=== PATIENT | male | born 1945 | race Caucasian/White ===

== ENCOUNTER → 2017-07-19 | Outpatient (CLI) | payer MEDICARE ==
[2017-07-19 12:03] LABS: ALT 45 U/L (21-72); AST 32 U/L (17-59); Cholesterol 210 mg/dL (<200); HDL Cholesterol 55 mg/dL (40-60)
== END | disposition home or self-care (01) ==
LOC: LABWHC1 10:53
PROVIDERS: ATTEND Internal Medicine Cardiovascular Disease
DX: E78.2 Mixed hyperlipidemia (principal)
CPT/HCPCS: 36415; 80061; 84450; 84460

== ENCOUNTER → 2018-05-18 | Outpatient (CLI) | payer MEDICARE ==
--- NOTE | 2018-05-18 14:43 | US ---
LOWER EXTREMITY VENOUS INSUFFICIENCY DATE: 05/18/2018. HISTORY: 73-year-old male diabetic foot ulcer, venous ulcer SIDE PERFORMED: Bilateral FINDINGS: 1) Color flow is present and patency is documented in the following vessels. No DVT or SVT is noted . EIV Common Femoral Vein Deep Femoral Vein Femoral Vein Popliteal Vein Proximal Calf Veins Greater Saph Vein Upper Small Saph Vein [employer] Chemist notes: Some difficulty during exam with valsalva maneuver, at certain levels valve did no t fully close; reflux is noted below. 2) There is venous reflux noted at the following venous levels: Right = FV mid and lower, Popiteal mid level, GSV at junction and mid thigh Left = GSV at junction and mid thigh IMPRESSION: 1. No evidence for DVT within the bilateral lower extremities imaged from the groin to the upper calv es. 2. Some patient limitations as above. On the right, venous reflux is noted at the mid and lower femor al vein, mid popliteal vein, and greater saphenous vein at its junction and mid thigh level. 3. On the left, venous reflux is noted in the greater saphenous vein at its junction and mid thigh le hank.
== END | disposition home or self-care (01) ==
LOC: RADUSWWP 13:14
PROVIDERS: ATTEND Podiatrist
DX: E11.621 Type 2 diabetes mellitus with foot ulcer (principal); L97.529 Non-pressure chronic ulcer of other part of left foot with unspecified severity; L97.519 Non-pressure chronic ulcer of other part of right foot with unspecified severity; I87.2 Venous insufficiency (chronic) (peripheral)
CPT/HCPCS: 93970

== ENCOUNTER → 2020-04-19 | Day surgery (SDC) | payer MEDICARE ==
[2020-04-18 08:59] VITALS: BMI 41.3
[~2020-04-19] MED LIST: BENZOCAINE SPRAY 1 CAN TOPICAL PRN; MIDAZOLAM 2 MG/2 ML VIAL IV ONE; PROPOFOL 10 MG/ML 20 ML VIAL IV ONE; SODIUM CHLORIDE 0.9% 1,000 ML IV SCH; fentaNYL (PF) 50 MCG/ML 2 ML AMP IVP ONE
[2020-04-19 08:20] LABS: Glucose,Whole Blood 136 mg/dL (75-99)
[2020-04-19 08:31] VITALS: TEMP 98.6
[2020-04-19 08:41] LABS: INR 2.2 (<1.2); Prothrombin Time 21.8 sec (9.0-12.0)
[2020-04-19 08:53] LABS: Calcium 9.1 mg/dL (8.4-10.2); Potassium 4.5 mmol/L (3.5-5.1)
[2020-04-19 09:11] LABS: Basophils # (A) 0.1 k/uL (0-0.2); Basophils % (A) 1 %; Eosinophils # (A) 0.3 k/uL (0-0.7); Eosinophils % (A) 5 %; HGB 14.6 gm/dL (13.0-17.5); Lymphocytes % (A) 18 %; MCH 29.3 pg (25.0-35.0); MCHC 33.2 g/dL (31.0-37.0); MCV 88.3 fL (80.0-100.0); Mean Platelet Volume 8.3; Monocytes # (A) 0.4 k/uL (0-1.0); Monocytes % (A) 8 %; Neutrophils # (A) 3.7 k/uL (1.3-7.7); Neutrophils % (A) 65 %; Platelet Count 242 k/uL (150-450); RBC 4.98 m/uL (4.30-5.90); RDW 14.8 % (11.5-15.5); WBC 5.6 k/uL (3.8-10.6)
[2020-04-19 09:25] VITALS: RESP 16
[2020-04-19 11:02] VITALS: BP 110/58; PULSE 50
--- NOTE | 2020-04-19 11:08 | ECHOT ---
TRANSESOPHAGEAL ECHOCARDIOGRAM INDICATION: Persistent atrial fibrillation. PROCEDURE NOTE: A transesophageal echo. INDICATION: To rule out intracardiac thrombus. Patient was sedated by the spreading machine operator. Transesophageal echocardiogram was performed in left lateral position using an Omni plane probe. The patient tolerated the procedure well without any obvious immediate complication. FINDINGS: 1. There is no intracardiac thrombus within the left atrial appendage. Left atrium, right atrium, right ventricle or left ventricle. 2. Mitral valve appears anatomically normal. There is dilatation of the mitral anulus with moderate to severe central mitral regurgitation. 3. Tricuspid valve shows mild tricuspid regurgitation. 4. Aortic valve is a 3-leaflet valve. There is no evidence of aortic stenosis or regurgitation. 5. Interatrial septum, there is no evidence of hjga-on-zjwkf shunt by color-flow Doppler or [id number] shunt by agitated saline contrast study. 6. Left atrium appears mildly enlarged. 7. Left ventricle has normal size, shows hypokinesis involving inferior wall with mild LV dysfunction with an ejection fraction of 45%. 8. Aorta shows mild atherosclerotic changes. CONCLUSION: 1. No evidence of intracardiac thrombus within the left atrial appendage, left atrium, right atrium, right ventricular or left ventricle. 2. Moderate to severe central mitral regurgitation. PLAN: Patient will undergo cardioversion. He had been on Coumadin and INR is therapeutic. CARDIOVERSION NOTE: INDICATION: Persistent atrial fibrillation. After obtaining informed consent, a transesophageal echocardiogram was performed to rule out intracardiac thrombus and the patient had been on Coumadin and INRs have been therapeutic. INR today was more than 2. The patient received a single synchronized DC current of 300 joules following which he converted to sinus rhythm. Post-conversion EKG will be performed. The patient is on amiodarone which he is going to continue along with Coumadin. We will hold the metoprolol at this time. The patient will be followed up in my office in a week's time. MMODL / IJN: [id number] /
== END ==
LOC: CATHCVL 07:54
PROVIDERS: ATTEND Internal Medicine Cardiovascular Disease
DX: I08.1 Rheumatic disorders of both mitral and tricuspid valves (principal); I70.0 Atherosclerosis of aorta; I48.19 Other persistent atrial fibrillation; I25.10 Atherosclerotic heart disease of native coronary artery without angina pectoris; I25.2 Old myocardial infarction; E11.9 Type 2 diabetes mellitus without complications; I10 Essential (primary) hypertension; E78.00 Pure hypercholesterolemia, unspecified; E78.5 Hyperlipidemia, unspecified; Z79.82 Long term (current) use of aspirin; Z79.01 Long term (current) use of anticoagulants; Z79.84 Long term (current) use of oral hypoglycemic drugs; Z79.899 Other long term (current) drug therapy; Z72.0 Tobacco use
CPT/HCPCS: 93312; 93320; 93325; 92960; 80048; 85025; 85610; J2704

== ENCOUNTER 2020-04-20 15:45 | Inpatient (IN) | payer MEDICARE ==
[2020-04-20] MEDS ORDERED: NITROGLYCERIN-D5W PMX 50 MG in DEXTROSE/WATER 1 250ML.BAG IV STA (15:57)
--- NOTE | 2020-04-20 16:45 | XR ---
EXAMINATION TYPE: XR chest 1V portable DATE OF EXAM: 04/20/2020 COMPARISON: 09/03/2013 HISTORY: Short of breath TECHNIQUE: FINDINGS: There is some pulmonary interstitial edema. Heart is enlarged. There is mild blunting of th e costophrenic angles. There are chest leads. There is some airspace infiltrate in right lower lobe. IMPRESSION: Pulmonary edema and small pleural effusions consistent with congestive heart failure that is a change compared to old exam. There is probably some right lower lobe pneumonia. Abnormalities e ssentially new compared to old exam.
--- NOTE | 2020-04-20 16:57 | ED ---
SOB HPI - General Chief Complaint: Shortness of Breath Stated Complaint: SOB Time Seen by Provider: 04/20/20 15:45 Source: EMS Mode of arrival: EMS Limitations: no limitations - History of Present Illness Initial Comments: The patient is a 75-year-old male with past medical history of A. fib, diabetes, hypertension hyperlipidemia who presents to the emergency department with reported shortness of breath. Patient had a cardioversion yesterday by Dr. Rolanda white for A. fib. States that he went home and became mildly short of breath yesterday. Shortness of breath became worse today. He reports an associated nonproductive cough. Patient denies history of COPD. Does not wear oxygen at home. Denies history of congestive heart failure. Does not take diuretics at home. Patient denies any fevers or chills. No sick contacts with similar symptoms. Has a history of DVT and is currently on Coumadin. He denies any chest pain. EMS arrived to the patient's house and found him saturating 70%. He is placed on nasal cannula and came up to 90% however he had tachypnea. Patient was then transferred to [facility]. He is given 2 albuterol treatments and on e Atrovent. He denies nausea, vomiting, abdominal pain. Patient has a chronic wound to the right lower externally which she sees wound care for. Denies any increased drainage from the site. Denies peripheral edema. There are no alleviating, Perceptin or modifying factors - Related Data Home Medications Medication Instructions Recorded Confirmed Lisinopril [Zestril] 20 mg PO DAILY 04/09/14 04/20/20 metFORMIN HCL [Glucophage] 500 mg PO BID 07/12/14 04/20/20 Cilostazol [Pletal] 100 mg PO BID 06/07/17 04/20/20 Multivitamin [Men's Multi-Vitamin] 1 tab PO DAILY 05/05/18 04/20/20 glyBURIDE [Diabeta] 5 mg PO AC-BID 06/17/18 04/20/20 Amiodarone [Cordarone] 200 mg PO BID 04/18/20 04/20/20 Warfarin [Coumadin] 5 mg PO MOTUTHFRSA 04/18/20 04/20/20 Fenofibrate [Lofibra] 160 mg PO DAILY 04/20/20 04/20/20 Warfarin [Coumadin] 2.5 mg PO SUWE 04/20/20 04/20/20 Previous Rx's Medication Instructions Recorded Aspirin 81 mg PO DAILY #30 chew 04/24/20 Atorvastatin [Lipitor] 40 mg PO DAILY #30 tab 04/24/20 Furosemide [Lasix] 20 mg PO BID #60 tab 04/24/20 Allergies Allergy/AdvReac Type Severity Reaction Status Date / Time No Known Allergies Allergy Verified 04/20/20 17:30 Review of Systems ROS Statement: Those systems with pertinent positive or pertinent negative responses have been documented in the HPI. ROS Other: All systems not noted in ROS Statement are negative. Past Medical History Past Medical History: Atrial Fibrillation, Coronary Artery Disease (CAD), Diabetes Mellitus, Deep Vein Thrombosis (DVT), Hyperlipidemia, Hypertension, Myocardial Infarction (HI), Skin Disorder, Vascular Disorder Additional Past Medical History / Comment(s): Shingles 2003. hx. elevated liver enzymes related to taking statins, right inner ankle small wound, usually wraps it, EDEMA LEGS, VARICOSE VEINS. DVT IN ARM FOLLOWING CARDIAC CATH, Last Myocardial Infarction Date:: 2005 History of Any Multi-Drug Resistant Organisms: MRSA Date of last positivie culture/infection: 06/11/16 MDRO Source:: RIGHT LEG Past Surgical History: Cholecystectomy, Heart Catheterization, Orthopedic Surgery, Tonsillectomy Additional Past Surgical History / Comment(s): Wrist surg., RLL SURGERIES D/T MARC. FEM/FEM BYPASS, Cardioversion 04/19 Past Anesthesia/Blood Transfusion Reactions: No Reported Reaction Past Psychological History: No Psychological Hx Reported Smoking Status: Former smoker - Past Family History Brother(s) Family Medical History: Cancer Sister(s) Family Medical History: Cancer Father Family Medical History: Myocardial Infarction (HI) Mother Family Medical History: Cancer, Dementia General Exam Limitations: no limitations General appearance: alert, in distress Head exam: Present: atraumatic, normocephalic, normal inspection Eye exam: Present: normal appearance, PERRL, EOMI. Absent: scleral icterus, conjunctival injection, periorbital swelling ENT exam: Present: normal exam, mucous membranes moist Neck exam: Present: normal inspection. Absent: tenderness, meningismus, lymphadenopathy Respiratory exam: Present: rales, accessory muscle use, decreased breath sounds, other (tachypnia) Cardiovascular Exam: Present: regular rate, normal rhythm, normal heart sounds. Absent: systolic murmur, diastolic murmur, rubs, gallop, clicks GI/Abdominal exam: Present: soft, normal bowel sounds. Absent: distended, tenderness, guarding, rebound, rigid Extremities exam: Present: pedal edema Neurological exam: Present: alert, oriented X3, CN II-XII intact Psychiatric exam: Present: normal affect, normal mood Skin exam: Present: warm, dry, intact, normal color. Absent: rash Course Vital Signs 04/20/20 04/20/20 04/20/20 15:47 15:57 15:59 Temperature 99 F 99.9 F H Pulse Rate 76 Pulse Rate [ Pulse Oximetery ] Respiratory 30 H 28 H Rate Blood Pressure 186/97 Blood Pressure [Left Arm] O2 Sat by Pulse 77 L 100 Oximetry 04/20/20 04/20/20 04/20/20 16:11 16:15 16:30 Temperature Pulse Rate 76 77 70 Pulse Rate [ Pulse Oximetery ] Respiratory 18 27 H 23 Rate Blood Pressure 186/97 157/71 118/65 Blood Pressure [Left Arm] O2 Sat by Pulse 94 L 93 L 93 L Oximetry 04/20/20 04/20/20 04/20/20 17:00 17:30 18:00 Temperature Pulse Rate 75 67 Pulse Rate [ Pulse Oximetery ] Respiratory 15 20 21 Rate Blood Pressure 129/76 162/65 Blood Pressure [Left Arm] O2 Sat by Pulse 91 L 95 95 Oximetry 04/20/20 04/20/20 04/20/20 18:30 19:00 19:30 Temperature Pulse Rate 65 64 62 Pulse Rate [ Pulse Oximetery ] Respiratory 25 H 22 26 H Rate Blood Pressure 155/63 159/61 151/63 Blood Pressure [Left Arm] O2 Sat by Pulse 90 L 91 L 90 L Oximetry 04/20/20 20:00 Temperature 98.6 F Pulse Rate Pulse Rate [ 67 Pulse Oximetery ] Respiratory 24 Rate Blood Pressure Blood Pressure 184/72 [Left Arm] O2 Sat by Pulse 91 L Oximetry Medical Decision Making - Medical Decision Making Prior to hospital arrival EMS did call and report. I instructed them to give a sublingual nitro to the patient. The patient arrives and is placed in a trauma bay 2. He has increased respirations and rales at the bases. Because of this I did transfer the patient from [facility] to BiPAP. He is initiated on a nitro drip at 20 mics per hour. Lab studies were conducted and a portable chest x-rays performed. On BiPAP the patient is saturating 97%. White blood cell count is elevated at 12.7. INR therapeutic at 2.8. Lactic acid 2.1. BNP is 525. Portable chest x-ray demonstrates pulmonary edema and small pleural effusions consistent with congestive heart failure. Probably some right lower lobe pneumonia. The patient is not given any fluids because of his volume overload. I did recommend hospital admission for which the patient did agree. I am able to titrate down the patient's nitro to 5 mics per hour. He does come off of the BiPAP. The patient was given 40 mg of Lasix IV. I discussed the case with Dr. Ortega at 1820 as the patient is post-cardioversion yesterday. He is agree with management. The patient is currently awaiting a bed on the telemetry unit - Lab Data Result diagrams: 04/22/20 06:04 04/23/20 06:06 Lab Results 04/20/20 04/20/20 04/20/20 Range/Units 16:01 16:01 16:01 WBC 12.7 H (3.8-10.6) k/uL RBC 5.20 (4.30-5.90) m/uL Hgb 14.6 (13.0-17.5) gm/dL Hct 45.8 (39.0-53.0) % MCV 88.1 (80.0-100.0) fL MCH 28.2 (25.0-35.0) pg MCHC 32.0 (31.0-37.0) g/dL RDW 15.1 (11.5-15.5) % Plt Count 300 (150-450) k/uL Neutrophils % 79 % Lymphocytes % 11 % Monocytes % 6 % Eosinophils % 2 % Basophils % 1 % Neutrophils # 10.0 H (1.3-7.7) k/uL Lymphocytes # 1.3 (1.0-4.8) k/uL Monocytes # 0.7 (0-1.0) k/uL Eosinophils # 0.2 (0-0.7) k/uL Basophils # 0.1 (0-0.2) k/uL PT 27.3 H (9.0-12.0) sec INR 2.8 H (<1.2) APTT 33.4 H (22.0-30.0) sec VBG pH (7.31-7.41) VBG pCO2 (37-51) mmHg VBG HCO3 (24-28) mmol/L Sodium 137 (137-145) mmol/L Potassium 4.8 (3.5-5.1) mmol/L Chloride 104 (98-107) mmol/L Carbon Dioxide 22 (22-30) mmol/L Anion Gap 11 mmol/L BUN 17 (9-20) mg/dL Creatinine 1.19 (0.66-1.25) mg/dL Est GFR (CKD-EPI)AfAm 70 (>60 ml/min/1.73 sqM) Est GFR (CKD-EPI)NonAf 60 (>60 ml/min/1.73 sqM) Glucose 154 H (74-99) mg/dL Lactic Ac Sepsis Rflx Plasma Lactic Acid Zhang (0.7-2.0) mmol/L Calcium 9.2 (8.4-10.2) mg/dL Magnesium 1.8 (1.6-2.3) mg/dL Total Bilirubin 1.6 H (0.2-1.3) mg/dL AST 87 H (17-59) U/L ALT 52 H (4-49) U/L Alkaline Phosphatase 135 H (38-126) U/L Troponin I (0.000-0.034) ng/mL NT-Pro-B Natriuret Pep pg/mL Total Protein 7.7 (6.3-8.2) g/dL Albumin 4.3 (3.5-5.0) g/dL 04/20/20 04/20/20 04/20/20 Range/Units 16:01 16:01 16:01 WBC (3.8-10.6) k/uL RBC (4.30-5.90) m/uL Hgb (13.0-17.5) gm/dL Hct (39.0-53.0) % MCV (80.0-100.0) fL MCH (25.0-35.0) pg MCHC (31.0-37.0) g/dL RDW (11.5-15.5) % Plt Count (150-450) k/uL Neutrophils % % Lymphocytes % % Monocytes % % Eosinophils % % Basophils % % Neutrophils # (1.3-7.7) k/uL Lymphocytes # (1.0-4.8) k/uL Monocytes # (0-1.0) k/uL Eosinophils # (0-0.7) k/uL Basophils # (0-0.2) k/uL PT (9.0-12.0) sec INR (<1.2) APTT (22.0-30.0) sec VBG pH (7.31-7.41) VBG pCO2 (37-51) mmHg VBG HCO3 (24-28) mmol/L Sodium (137-145) mmol/L Potassium (3.5-5.1) mmol/L Chloride (98-107) mmol/L Carbon Dioxide (22-30) mmol/L Anion Gap mmol/L BUN (9-20) mg/dL Creatinine (0.66-1.25) mg/dL Est GFR (CKD-EPI)AfAm (>60 ml/min/1.73 sqM) Est GFR (CKD-EPI)NonAf (>60 ml/min/1.73 sqM) Glucose (74-99) mg/dL Lactic Ac Sepsis Rflx Plasma Lactic Acid Zhang 2.1 H* (0.7-2.0) mmol/L Calcium (8.4-10.2) mg/dL Magnesium (1.6-2.3) mg/dL Total Bilirubin (0.2-1.3) mg/dL AST (17-59) U/L ALT (4-49) U/L Alkaline Phosphatase (38-126) U/L Troponin I <0.012 (0.000-0.034) ng/mL NT-Pro-B Natriuret Pep 525 pg/mL Total Protein (6.3-8.2) g/dL Albumin (3.5-5.0) g/dL 04/20/20 04/20/20 Range/Units 16:01 17:39 WBC (3.8-10.6) k/uL RBC (4.30-5.90) m/uL Hgb (13.0-17.5) gm/dL Hct (39.0-53.0) % MCV (80.0-100.0) fL MCH (25.0-35.0) pg MCHC (31.0-37.0) g/dL RDW (11.5-15.5) % Plt Count (150-450) k/uL Neutrophils % % Lymphocytes % % Monocytes % % Eosinophils % % Basophils % % Neutrophils # (1.3-7.7) k/uL Lymphocytes # (1.0-4.8) k/uL Monocytes # (0-1.0) k/uL Eosinophils # (0-0.7) k/uL Basophils # (0-0.2) k/uL PT (9.0-12.0) sec INR (<1.2) APTT (22.0-30.0) sec VBG pH 7.31 (7.31-7.41) VBG pCO2 51 (37-51) mmHg VBG HCO3 25 (24-28) mmol/L Sodium (137-145) mmol/L Potassium (3.5-5.1) mmol/L Chloride (98-107) mmol/L Carbon Dioxide (22-30) mmol/L Anion Gap mmol/L BUN (9-20) mg/dL Creatinine (0.66-1.25) mg/dL Est GFR (CKD-EPI)AfAm (>60 ml/min/1.73 sqM) Est GFR (CKD-EPI)NonAf (>60 ml/min/1.73 sqM) Glucose (74-99) mg/dL Lactic Ac Sepsis Rflx Y Plasma Lactic Acid Zhang (0.7-2.0) mmol/L Calcium (8.4-10.2) mg/dL Magnesium (1.6-2.3) mg/dL Total Bilirubin (0.2-1.3) mg/dL AST (17-59) U/L ALT (4-49) U/L Alkaline Phosphatase (38-126) U/L Troponin I (0.000-0.034) ng/mL NT-Pro-B Natriuret Pep pg/mL Total Protein (6.3-8.2) g/dL Albumin (3.5-5.0) g/dL - EKG Data EKG Comments: EKG demonstrates a sinus rhythm with a first-degree AV block. Rate of 75. SC interval 216. QRS 126. QTC of 439. No acute ST segment elevations or depressions concerning for ischemic changes. Right bundle branch block present. Critical Care Time Critical Care Time: Yes Critical Care Time: 32 minutes Disposition Clinical Impression: Chronic stasis dermatitis of right lower extremity, Systolic congestive heart failure, HCAP (healthcare-associated pneumonia), Respiratory failure with hypoxia, BiPAP (biphasic positive airway pressure) dependence Disposition: ADMITTED IP TO THIS [facility] Condition: Stable Is patient prescribed a controlled substance at d/c from ED?: No Decision to Admit Reason: Admit from EC Decision Date: 04/20/20 Decision Time: 18:13
[2020-04-20 17:28] LABS: Basophils # (A) 0.1 k/uL (0-0.2); Basophils % (A) 1 %; Eosinophils # (A) 0.2 k/uL (0-0.7); Eosinophils % (A) 2 %; HCT 45.8 % (39.0-53.0); HGB 14.6 gm/dL (13.0-17.5); Lymphocytes # (A) 1.3 k/uL (1.0-4.8); Lymphocytes % (A) 11 %; MCH 28.2 pg (25.0-35.0); MCV 88.1 fL (80.0-100.0); Mean Platelet Volume 8.8; Monocytes # (A) 0.7 k/uL (0-1.0); Monocytes % (A) 6 %; Neutrophils % (A) 79 %; Platelet Count 300 k/uL (150-450); RDW 15.1 % (11.5-15.5); VBG PH 7.31 (7.31-7.41); WBC 12.7 k/uL (3.8-10.6)
[2020-04-20 17:34] LABS: Albumin 4.3 g/dL (3.5-5.0); Calcium 9.2 mg/dL (8.4-10.2); Magnesium 1.8 mg/dL (1.6-2.3); Potassium 4.8 mmol/L (3.5-5.1); Total Bilirubin 1.6 mg/dL (0.2-1.3); Total Protein 7.7 g/dL (6.3-8.2)
[2020-04-20 17:44] LABS: INR 2.8 (<1.2); Partial Thromboplastin Time 33.4 sec (22.0-30.0); Prothrombin Time 27.3 sec (9.0-12.0)
[2020-04-20] MEDS ORDERED: VANCOMYCIN IV PER PHARMACY 1 EACH MISC MISCELLANE PRN (17:58)
[2020-04-20] MEDS ORDERED: LEVOFLOXACIN 750MG-D5W PMX 750 MG in DEXTROSE/WATER 1 150ML.BAG IVPB STA (17:58)
[2020-04-20] MEDS ORDERED: VANCOMYCIN 2,500 MG in SODIUM CHLORIDE 0.9% 500 ML 500 ML IVPB STA (18:09)
[2020-04-20] MEDS ORDERED: FUROSEMIDE 10 MG/ML 4 ML VIAL IV STA (18:11)
[2020-04-20] MEDS ORDERED: NALOXONE 0.4 MG/ML 1 ML VIAL IV PRN (18:14)
[2020-04-20 20:44] LABS: Glucose,Whole Blood 145 mg/dL (75-99)
[2020-04-20] MEDS ORDERED: IBUPROFEN 200 MG TAB PO PRN (21:43)
[2020-04-20] MEDS ORDERED: ASPIRIN 81 MG PO STA (22:33)
[2020-04-20] MEDS: AMIODARONE 200 MG TAB PO SCH (23:09)
[2020-04-20] MEDS: CILOSTAZOL 100 MG TAB PO SCH (23:09)
[2020-04-20] MEDS: WARFARIN 5 MG TAB PO SCH (23:09)
[2020-04-21 03:55] LABS: INR 2.8 (<1.2)
[2020-04-21 03:56] LABS: Prothrombin Time 27.1 sec (9.0-12.0)
[2020-04-21 04:15] LABS: Potassium 4.1 mmol/L (3.5-5.1)
[2020-04-21 04:25] LABS: Basophils % (A) 1 %; Eosinophils # (A) 0.1 k/uL (0-0.7); Eosinophils % (A) 2 %; HCT 39.1 % (39.0-53.0); HGB 13.2 gm/dL (13.0-17.5); Lymphocytes # (A) 1.2 k/uL (1.0-4.8); Lymphocytes % (A) 16 %; MCH 30.2 pg (25.0-35.0); MCHC 33.9 g/dL (31.0-37.0); Mean Platelet Volume 8.2; Monocytes # (A) 0.6 k/uL (0-1.0); Monocytes % (A) 8 %; Neutrophils # (A) 5.1 k/uL (1.3-7.7); Neutrophils % (A) 70 %; Platelet Count 211 k/uL (150-450); RBC 4.39 m/uL (4.30-5.90); RDW 15.2 % (11.5-15.5); WBC 7.2 k/uL (3.8-10.6)
[2020-04-21 06:19] LABS: Glucose,Whole Blood 111 mg/dL (75-99)
[2020-04-21] MEDS: INSULIN ASPART (NovoLOG) 100 UNIT/ML VIAL SQ SCH ×4 (06:20→20:11)
[2020-04-21] MEDS: LISINOPRIL 20 MG TAB PO SCH (08:06)
[2020-04-21] MEDS: AMIODARONE 200 MG TAB PO SCH ×2 (08:06→20:10)
[2020-04-21] MEDS: CILOSTAZOL 100 MG TAB PO SCH ×2 (08:06→20:11)
[2020-04-21] MEDS ORDERED: FENOFIBRATE 160 MG TAB PO SCH (09:00)
[2020-04-21 11:42] LABS: Cholesterol 160 mg/dL (<200); HDL Cholesterol 59 mg/dL (40-60); LDL Cholesterol,Calculated 80 mg/dL (0-99); Triglycerides 104 mg/dL (<150)
[2020-04-21] MEDS: ATORVASTATIN 40 MG TAB PO SCH (12:01)
[2020-04-21] MEDS: FUROSEMIDE 10 MG/ML 2 ML VIAL IV SCH ×2 (12:01→20:10)
[2020-04-21] MEDS: MULTIVITAMINS, THERA 1 EACH TAB PO SCH (12:01)
[2020-04-21 12:16] LABS: Glucose,Whole Blood 118 mg/dL (75-99)
[2020-04-21] MEDS ORDERED: VANCOMYCIN 2,000 MG in SODIUM CHLORIDE 0.9% 500 ML 500 ML IVPB SCH (15:00)
--- NOTE | 2020-04-21 15:24 | CONS ---
CONSULTATION Mr. Fatima is a 75-year-old male who is followed on a regular basis by Dr. Acosta, has a known history of coronary artery disease status post myocardial infarction about 15 years ago, history of peripheral vascular disease who presented with symptoms of progressive dyspnea. The patient was evaluated by Dr. Acosta recently because of persistent chronic atrial fibrillation and underwent CLIFF guided cardioversion on the 12th of this month. His CLIFF showed an ejection fraction of about 45% with moderate to severe mitral regurgitation. The patient underwent cardioversion with congregation of normal sinus rhythm. He went home, tripped and fell and injured his knee, but subsequently became more and more short of breath with progressive dyspnea and inability to ambulate. Because of that, he came into the emergency room. He has vague chest discomfort. He denies any palpitation or syncope. He is in sinus mechanism. He has no significant dizziness. He has peripheral edema in the past, worse on the right side post multiple interventions. He had a fem-fem bypass done by Dr. Rizzo a long time ago. 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 The patient had no recent episode of CHF. He has no clear PND nor orthopnea in the past. His coronary risk factors are remarkable for diabetes, hypertension, and hyperlipidemia. He is a nonsmoker. His medications include metformin, Diabeta, Coumadin, Zestril 20 mg daily, ibuprofen, fenofibrate 160 mg daily, Pletal 100 mg twice a day and amiodarone 200 mg twice a day. REVIEW OF SYSTEMS: RESPIRATORY SYSTEM: He has no documented recent history of obstructive lung disease. He has some dyspnea but no recent wheezing. GI SYSTEM: No recent GI bleed. No peptic ulcer disease. SYSTEM: No dysuria or hematuria. NERVOUS SYSTEM: No stroke or seizure. PHYSICAL EXAMINATION: He is a 75-year-old male, alert, oriented, in no apparent distress, obese. Blood pressure 128/60 with a heart rate in the 60s. HEAD: Normocephalic. EYES: Sclerae nonicteric. NECK: Good carotid upstroke, no bruit. LUNGS: With crackles at the bases. HEART: Regular rate and rhythm S1, S2. No S3 with a holosystolic murmur in the apex and a systolic ejection murmur at the base. ABDOMEN: Soft, obese, nontender. EXTREMITIES: Decreased distal pulses. Chronic stasis on the right heel with ulceration and 1+ to 2 edema bilaterally. LAB DATA: INR of 2.8, BUN and creatinine 17 and 1.19. Hemoglobin of 13.2. Troponin of less than 0.012, 0.127, and 0.122. EKG revealed a sinus mechanism with right axis deviation, first-degree AV block. Chest x-ray shows evidence of congestive heart failure. IMPRESSION: 1. Symptoms consistent with severe congestive heart failure in a patient status post recent cardioversion. His NT proBNP is not significantly elevated at 525. It is possible that he had stunning of the myocardium following the cardioversion. 2. Minimal troponin elevation with no is significant chest discomfort. The patient has a known history of coronary artery disease. 3. Mitral regurgitation. 4. Hypertension. 5. Hyperlipidemia. 6. Diabetes mellitus. RECOMMENDATION: I would repeat the echocardiogram to further evaluate his systolic function post cardioversion. Will continue on the diuresis. He was hypertensive on presentation on IV nitroglycerin. I will stop the IV nitroglycerin. I will continue anticoagulation. Patient may require repeat cardiac catheterization but depending on results of testing, further recommendations will be made. Thank you for this consult. We will follow with you. MMODL / IJN: [id number] /
--- NOTE | 2020-04-21 15:40 | P.HPIM ---
History of Present Illness H&P Date: 04/21/20 Chief Complaint: Shortness of breath Agent is a 75-year-old male with a known history of hypertension, hyperlipidemia, diabetes type 2, history of ID, coronary artery disease, peripheral vascular disease with fem-fem bypass, atrial fibrillation status post cardioversion on 04/19/2020 came to ER with complaints of shortness of breath. Patient had cardioversion and went home and became short of breath shortly after. Patient has been worsening shortness of breath yesterday which made him to come to ER. Did have nonproductive cough. No fever no chills. No history of prior CHF. Denied any sick contacts. Patient does have history of DVT and is on Coumadin at home. No complaints of chest pain. Patient was saturating at 70% on admission. Patient was placed on observation as an cannula and oxygen saturation went up to 90%. Patient was tachypneic and was started on noninvasive mechanical ventilation with CPAP. Patient was also given breathing treatments in the ER. Denied any complaints of nausea vomiting or abdominal pain or diarrhea. Patient does have chronic lower extremity wound at the ankle and is following with wound care for that. No discharge or drainage noted. EKG showed sinus rhythm with first-degree AV block. Chest x-ray showed pulmonary edema and small pleural effusions consistent with CHF that is a change compared to old exam. There is probably some right lower lobe pneumonia. Abnormal and is essentially new compared to old exam. wbc 0.7 Lactic acid 2.1 BNP 525 Liver enzymes are slightly elevated Review of Systems Constitutional: Patient denies any fever or chills . No generalized weakness or weight loss. Abdomen: Patient denied nausea vomiting and diarrhea and abdominal pain. Cardiovascular: Patient denies any chest pain. Does have short of breath no palpitations. Respiratory: patient does have cough without sputum production. Positive shortness of breath Neurologic: Patient denied any numbness or tingling headache. Musculoskeletal: Patient denies any complaints of joint swelling or deformity. Skin: Negative Psychiatric: Negative Endocrine: No heat or cold intolerance. No recent weight gain. Genitourinary: No dysuria or hematuria. All other 14 point ROS negative except the above Past Medical History Past Medical History: Atrial Fibrillation, Coronary Artery Disease (CAD), Diabetes Mellitus, Deep Vein Thrombosis (DVT), Hyperlipidemia, Hypertension, Myocardial Infarction (ID), Skin Disorder, Vascular Disorder Additional Past Medical History / Comment(s): [place] 2003. hx. elevated liver enzymes related to taking statins, right inner ankle small wound, usually wraps it, EDEMA LEGS, VARICOSE VEINS. DVT IN ARM FOLLOWING CARDIAC CATH, Last Myocardial Infarction Date:: 2005 History of Any Multi-Drug Resistant Organisms: MRSA Date of last positivie culture/infection: 06/11/16 MDRO Source:: RIGHT LEG Past Surgical History: Cholecystectomy, Heart Catheterization, Orthopedic Surgery, Tonsillectomy Additional Past Surgical History / Comment(s): Wrist surg., RLL SURGERIES D/T MARC. FEM/FEM BYPASS, Cardioversion 04/19 Past Anesthesia/Blood Transfusion Reactions: No Reported Reaction Past Psychological History: No Psychological Hx Reported Smoking Status: Former smoker - Past Family History Brother(s) Family Medical History: Cancer Sister(s) Family Medical History: Cancer Father Family Medical History: Myocardial Infarction (ID) Mother Family Medical History: Cancer, Dementia Medications and Allergies Home Medications Medication Instructions Recorded Confirmed Type Lisinopril [Zestril] 20 mg PO DAILY 04/09/14 04/20/20 History metFORMIN HCL [Glucophage] 500 mg PO BID 07/12/14 04/20/20 History Cilostazol [Pletal] 100 mg PO BID 06/07/17 04/20/20 History Ibuprofen [Motrin Ib] 200 mg PO Q6H PRN 05/05/18 04/20/20 History Multivitamin [Men's Multi-Vitamin] 1 tab PO DAILY 05/05/18 04/20/20 History glyBURIDE [Diabeta] 5 mg PO AC-BID 06/17/18 04/20/20 History Amiodarone [Cordarone] 200 mg PO BID 04/18/20 04/20/20 History Warfarin [Coumadin] 5 mg PO MOTUTHFRSA 04/18/20 04/20/20 History Fenofibrate [Lofibra] 160 mg PO DAILY 04/20/20 04/20/20 History Warfarin [Coumadin] 2.5 mg PO SUWE 04/20/20 04/20/20 History Allergies Allergy/AdvReac Type Severity Reaction Status Date / Time No Known Allergies Allergy Verified 04/20/20 17:30 Physical Exam Vitals: Vital Signs Temp Pulse Pulse Resp BP BP Pulse Ox 04/21/20 08:00 97.1 F L 61 24 128/61 97 04/21/20 04:00 98.2 F 58 L 22 129/63 94 L 04/21/20 00:00 98.3 F 60 22 114/64 94 L 04/20/20 20:00 98.6 F 67 24 184/72 91 L 04/20/20 19:30 62 26 H 151/63 90 L 04/20/20 19:00 64 22 159/61 91 L 04/20/20 18:30 65 25 H 155/63 90 L 04/20/20 18:00 67 21 162/65 95 04/20/20 17:30 20 95 04/20/20 17:00 75 15 129/76 91 L 04/20/20 16:30 70 23 118/65 93 L 04/20/20 16:15 77 27 H 157/71 93 L 04/20/20 16:11 76 18 186/97 94 L 04/20/20 15:59 99.9 F H 100 04/20/20 15:57 28 H 04/20/20 15:47 99 F 76 30 H 186/97 77 L Intake and Output 04/20/20 04/21/20 04/21/20 22:59 06:59 14:59 Intake Total 256.5 Output Total 1275 1675 Balance -1018.5 -1675 Intake: Intake, IV Titration 16.5 Amount Nitroglycerin-D5w Pmx 50 16.5 mg In Dextrose/Water 1 250ml.bag @ 5 MCG/MIN 1.5 mls/hr IV .Q24H STA Rx#: [id number] Oral 240 Output: Urine 1275 1675 Other: Voiding Method Urinal # Voids 2 1 Weight 127.006 kg 130 kg PHYSICAL EXAMINATION: Patient is lying in the bed comfortably, no acute distress, awake alert and oriented.. HEENT: Normocephalic. Neck is supple. Pupils reactive. Nostrils clear. Oral cavity is moist. Ears reveal no drainage. Neck reveals no JVD, carotid bruits, or thyromegaly. CHEST EXAMINATION: Trachea is central. Symmetrical expansion. Bibasilar diminished air entry. No wheezing. Lung sands clear to auscultation and percussion. CARDIAC: Normal S1, S2 with no gallops. No murmurs ABDOMEN: Soft. Bowel sounds normal. No organomegaly. No abdominal bruits. Extremities: Bilateral lower extremity 2+ edema. No clubbing or cyanosis Neurologically awake, alert, oriented x3 with well-coordinated movements. No focal deficits noted Skin: No rash or skin lesions. Psychiatric: Coperative. Nonsuicidal Musculoskeletal: No joint swelling or deformity. Normal range of motion. Results CBC & Chem 7: 04/21/20 03:30 04/21/20 03:30 Labs: Abnormal Lab Results - Last 24 Hours (Table) 04/20/20 04/20/20 04/20/20 Range/Units 16:01 16:01 16:01 WBC 12.7 H (3.8-10.6) k/uL Neutrophils # 10.0 H (1.3-7.7) k/uL PT 27.3 H (9.0-12.0) sec INR 2.8 H (<1.2) APTT 33.4 H (22.0-30.0) sec Glucose 154 H (74-99) mg/dL POC Glucose (mg/dL) (75-99) mg/dL Plasma Lactic Acid Zhang (0.7-2.0) mmol/L Total Bilirubin 1.6 H (0.2-1.3) mg/dL AST 87 H (17-59) U/L ALT 52 H (4-49) U/L Alkaline Phosphatase 135 H (38-126) U/L Troponin I (0.000-0.034) ng/mL 04/20/20 04/20/20 04/20/20 Range/Units 16:01 20:39 21:43 WBC (3.8-10.6) k/uL Neutrophils # (1.3-7.7) k/uL PT (9.0-12.0) sec INR (<1.2) APTT (22.0-30.0) sec Glucose (74-99) mg/dL POC Glucose (mg/dL) 145 H (75-99) mg/dL Plasma Lactic Acid Zhang 2.1 H* (0.7-2.0) mmol/L Total Bilirubin (0.2-1.3) mg/dL AST (17-59) U/L ALT (4-49) U/L Alkaline Phosphatase (38-126) U/L Troponin I 0.120 H* (0.000-0.034) ng/mL 04/21/20 04/21/20 04/21/20 Range/Units 03:30 03:30 03:30 WBC (3.8-10.6) k/uL Neutrophils # (1.3-7.7) k/uL PT 27.1 H (9.0-12.0) sec INR 2.8 H (<1.2) APTT (22.0-30.0) sec Glucose 117 H (74-99) mg/dL POC Glucose (mg/dL) (75-99) mg/dL Plasma Lactic Acid Zhang (0.7-2.0) mmol/L Total Bilirubin (0.2-1.3) mg/dL AST (17-59) U/L ALT (4-49) U/L Alkaline Phosphatase (38-126) U/L Troponin I 0.122 H* (0.000-0.034) ng/mL 04/21/20 Range/Units 06:18 WBC (3.8-10.6) k/uL Neutrophils # (1.3-7.7) k/uL PT (9.0-12.0) sec INR (<1.2) APTT (22.0-30.0) sec Glucose (74-99) mg/dL POC Glucose (mg/dL) 111 H (75-99) mg/dL Plasma Lactic Acid Zhang (0.7-2.0) mmol/L Total Bilirubin (0.2-1.3) mg/dL AST (17-59) U/L ALT (4-49) U/L Alkaline Phosphatase (38-126) U/L Troponin I (0.000-0.034) ng/mL Thrombosis Risk Factor Assmnt - DVT/VTE Prophylaxis DVT/VTE Prophylaxis: Pharmacologic Prophylaxis ordered - Choose All That Apply Each Factor Represents 1 point: Abnormal pulmonary function (COPD) Each Risk Factor Represents 2 Points: Age 61-74 years Thrombosis Risk Factor Assessment Total Risk Factor Score: 3 Thrombosis Risk Factor Assessment Level: Moderate Risk Assessment and Plan Assessment: Pulmonary edema and small pleural effusion likely due to acute CHF. BNP level is only mildly elevated. Acute hypoxic respiratory failure secondary to CHF requiring noninvasive mechanical ventilation in the ER. Elevated liver enzymes likely due to congestion Paroxysmal atrial fibrillation status post cardioversion on 04/19/2020 History of DVT in the arm following cardiac cath History of ID Coronary artery disease Peripheral vascular disease status post fem-fem bypass Previous history of smoking Hypertension and diabetes type 2 management depending Hyperlipidemia Chronic right ankle wound follows with the wound care clinic. History of MRSA DVT prophylaxis patient is already on Coumadin Plan: Patient will be continued on IV Lasix and breathing treatments as needed. Continue with telemetry monitoring. Oxygen therapy as needed. Cardiology was consulted and 2-D echocardiogram was ordered. Continue the insulin sliding scale and monitor blood sugar closely. Further recommendations based on the clinical course. Continue the wound care. Prognosis is guarded. Time with Patient: Greater than 30
[2020-04-21 17:13] LABS: Glucose,Whole Blood 137 mg/dL (75-99)
[2020-04-21] MEDS ORDERED: WARFARIN 2.5 MG TAB PO SCH (18:00)
[2020-04-21 19:52] LABS: Glucose,Whole Blood 162 mg/dL (75-99)
[2020-04-22 06:16] LABS: Glucose,Whole Blood 143 mg/dL (75-99)
[2020-04-22] MEDS: INSULIN ASPART (NovoLOG) 100 UNIT/ML VIAL SQ SCH ×4 (06:22→20:42)
[2020-04-22 07:07] LABS: Basophils % (A) 1 %; Eosinophils # (A) 0.2 k/uL (0-0.7); Eosinophils % (A) 5 %; HCT 39.4 % (39.0-53.0); INR 2.3 (<1.2); Lymphocytes # (A) 0.8 k/uL (1.0-4.8); Lymphocytes % (A) 16 %; MCH 29.2 pg (25.0-35.0); MCHC 33.1 g/dL (31.0-37.0); MCV 88.1 fL (80.0-100.0); Mean Platelet Volume 8.4; Monocytes # (A) 0.5 k/uL (0-1.0); Monocytes % (A) 10 %; Neutrophils # (A) 3.2 k/uL (1.3-7.7); Neutrophils % (A) 66 %; Platelet Count 200 k/uL (150-450); Prothrombin Time 22.4 sec (9.0-12.0); RBC 4.47 m/uL (4.30-5.90); RDW 14.9 % (11.5-15.5); WBC 4.9 k/uL (3.8-10.6)
[2020-04-22 07:20] LABS: Calcium 8.4 mg/dL (8.4-10.2); Potassium 3.6 mmol/L (3.5-5.1)
[2020-04-22] MEDS: FUROSEMIDE 10 MG/ML 2 ML VIAL IV SCH ×2 (08:59→20:39)
[2020-04-22] MEDS: AMIODARONE 200 MG TAB PO SCH ×2 (09:00→20:40)
[2020-04-22] MEDS: ASPIRIN 81 MG PO SCH (09:00)
[2020-04-22] MEDS: ATORVASTATIN 40 MG TAB PO SCH (09:00)
[2020-04-22] MEDS: LISINOPRIL 20 MG TAB PO SCH (09:00)
[2020-04-22] MEDS: CILOSTAZOL 100 MG TAB PO SCH ×2 (10:54→20:38)
[2020-04-22 11:04] LABS: Hemoglobin A1C 6.5 % (4.0-6.0)
--- NOTE | 2020-04-22 11:05 | PN ---
PROGRESS NOTE Mr. Fatima is a 75-year-old male who is followed on a regular basis by Dr. Acosta and underwent recent cardioversion with buddhist of sinus mechanism. He presented with symptoms of significant dyspnea on exertion and evidence of congestive heart failure. He is feeling much better today, his breathing is better. He denies any symptoms of chest pain. He denies any dizziness, palpitation. He denies any nausea. He continues to be at this time on amiodarone 200 mg twice a day, aspirin once a day, Lipitor 4 mg daily, 100 mg twice a day, Lasix 20 mg IV q.12 hours, lisinopril 20 mg daily, and his Coumadin. PHYSICAL EXAMINATION: Blood pressure 134/60 with a heart rate in the 60s. LUNGS: Clear. HEART: Regular rate and rhythm, S1, S2. No S3 with systolic murmur, no diastolic murmur. ABDOMEN: Soft, nontender, positive bowel sounds, no organomegaly. EXTREMITIES: No edema. LAB DATA: Revealed a BUN and creatinine 16 and 1.5, potassium 3.6, hemoglobin of 13. His INR is 2.3. IMPRESSION: 1. Episode of congestive heart failure, status post cardioversion, probably related to stunning of the myocardium. 2. Minimal troponin elevation with no clear evidence to suggest angina pectoris, could be related to the cardioversion. 3. Mitral regurgitation. 4. Hypertension. 5. Hyperlipidemia. 6. Diabetes mellitus. RECOMMENDATION: I will continue present therapy. Will continue diuretics intravenously for 24 hours. I will review the results of his repeat echocardiogram. If he remains stable, he may be able to be discharged home tomorrow. MMODL / IJN: [id number] /
[2020-04-22] MEDS: MULTIVITAMINS, THERA 1 EACH TAB PO SCH (11:55)
[2020-04-22 11:57] LABS: Glucose,Whole Blood 153 mg/dL (75-99)
[2020-04-22 17:10] LABS: Glucose,Whole Blood 157 mg/dL (75-99)
[2020-04-22] MEDS: WARFARIN 5 MG TAB PO SCH (17:46)
[2020-04-22 20:08] LABS: Glucose,Whole Blood 235 mg/dL (75-99)
[2020-04-22] MEDS: ACETAMINOPHEN TAB 325 MG TAB PO PRN (20:39)
--- NOTE | 2020-04-23 00:36 | P.PN ---
Subjective Progress Note Date: 04/22/20 Principal diagnosis: Acute CHF Pt. is a 75-year-old male with a known history of hypertension, hyperlipidemia, diabetes type 2, history of NE, coronary artery disease, peripheral vascular disease with fem-fem bypass, atrial fibrillation status post cardioversion on 04/19/2020 came to ER with complaints of shortness of breath. Patient had cardioversion and went home and became short of breath shortly after. Patient has been worsening shortness of breath yesterday which made him to come to ER. Did have nonproductive cough. No fever no chills. No history of prior CHF. D enied any sick contacts. Patient does have history of DVT and is on Coumadin at home. No complaints of chest pain. Patient was saturating at 70% on admission. Patient was placed on observation as an cannula and oxygen saturation went up to 90%. Patient was tachypneic and was started on noninvasive mechanical ventilation with CPAP. Patient was also given breathing treatments in the ER. Denied any complaints of nausea vomiting or abdominal pain or diarrhea. Patient does have chronic lower extremity wound at the ankle and is following with wound care for that. No discharge or drainage noted. EKG showed sinus rhythm with first-degree AV block. Chest x-ray showed pulmonary edema and small pleural effusions consistent with CHF that is a change compared to old exam. There is probably some right lower lobe pneumonia. Abnormal and is essentially new compared to old exam. wbc 0.7 Lactic acid 2.1 BNP 525 Liver enzymes are slightly elevated 04/22/2020 Patient is currently lying in the bed comfortably. Breathing status is better. Still having exertional dyspnea. Currently being continued on IV Lasix which will be continued for another 24 hours. Cardiology is following. Renal fu nction is stable. Continued on oxygen therapy. Patient has been afebrile. No nausea vomiting or abdominal pain or diarrhea. No headache or dizziness or lightheadedness. Leg swelling is improving. Current medications reviewed Objective - Vital Signs Vital signs: Vital Signs Temp 97.8 F 04/22/20 08:50 Pulse 64 04/22/20 08:50 Resp 18 04/22/20 08:50 BP 124/58 04/22/20 08:50 Pulse Ox 98 04/22/20 08:50 Intake & Output 04/21/20 04/22/20 04/22/20 18:59 06:59 18:59 Intake Total 230 240 Output Total 600 1540 600 Balance -411 -8051 -835 Weight 127 kg Intake: Oral 230 240 Output: Urine 600 1540 600 Other: Voiding Method Urinal # Voids 1 1 - Exam PHYSICAL EXAMINATION: Patient is lying in the bed comfortably, no acute distress, awake alert and oriented.. HEENT: Normocephalic. Neck is supple. Pupils reactive. Nostrils clear. Oral cavity is moist. Ears reveal no drainage. Neck reveals no JVD, carotid bruits, or thyromegaly. CHEST EXAMINATION: Trachea is central. Symmetrical expansion. Bibasilar diminished air entry. No wheezing. Lung sands clear to auscultation and percussion. CARDIAC: Normal S1, S2 with no gallops. No murmurs ABDOMEN: Soft. Bowel sounds normal. No organomegaly. No abdominal bruits. Extremities: Bilateral lower extremity 2+ edema. No clubbing or cyanosis Neurologically awake, alert, oriented x3 with well-coordinated movements. No focal deficits noted Skin: No rash or skin lesions. Psychiatric: Coperative. Nonsuicidal Musculoskeletal: No joint swelling or deformity. Normal range of motion. - Labs CBC & Chem 7: 04/22/20 06:04 04/22/20 06:04 Labs: Abnormal Lab Results - Last 24 Hours (Table) 04/21/20 04/21/20 04/21/20 Range/Units 03:30 17:07 19:50 Lymphocytes # (1.0-4.8) k/uL PT (9.0-12.0) sec INR (<1.2) Glucose (74-99) mg/dL POC Glucose (mg/dL) 137 H 162 H (75-99) mg/dL Hemoglobin A1c 6.5 H (4.0-6.0) % 04/22/20 04/22/20 04/22/20 Range/Units 06:04 06:04 06:04 Lymphocytes # 0.8 L (1.0-4.8) k/uL PT 22.4 H (9.0-12.0) sec INR 2.3 H (<1.2) Glucose 116 H (74-99) mg/dL POC Glucose (mg/dL) (75-99) mg/dL Hemoglobin A1c (4.0-6.0) % 04/22/20 04/22/20 Range/Units 06:14 11:47 Lymphocytes # (1.0-4.8) k/uL PT (9.0-12.0) sec INR (<1.2) Glucose (74-99) mg/dL POC Glucose (mg/dL) 143 H 153 H (75-99) mg/dL Hemoglobin A1c (4.0-6.0) % Microbiology - Last 24 Hours (Table) 04/20/20 17:23 Blood Culture - Preliminary Blood No Growth after 24 hours Assessment and Plan Assessment: Pulmonary edema and small pleural effusion likely due to acute CHF. BNP level is only mildly elevated. Possibly due to myocardial stunning after cardioversion. Acute hypoxic respiratory failure secondary to CHF requiring noninvasive mechanical ventilation in the ER. Elevated liver enzymes likely due to congestion Paroxysmal atrial fibrillation status post cardioversion on 04/19/2020 History of DVT in the arm following cardiac cath History of NE Coronary artery disease Peripheral vascular disease status post fem-fem bypass Previous history of smoking Hypertension and diabetes type 2 management depending Hyperlipidemia Chronic right ankle wound follows with the wound care clinic. History of MRSA DVT prophylaxis patient is already on Coumadin Plan: Patient will be continued on IV Lasix and breathing treatments as needed. Continue with telemetry monitoring. Oxygen therapy as needed. Cardiology was consulted and 2-D echocardiogram was ordered. Continue the insulin sliding scale and monitor blood sugar closely. Further recommendations based on the clinical course. Continue the wound care. Prognosis is guarded. Time with Patient: Greater than 30
[2020-04-23] MEDS: ACETAMINOPHEN TAB 325 MG TAB PO PRN ×2 (02:40→23:11)
[2020-04-23 06:12] LABS: Glucose,Whole Blood 136 mg/dL (75-99)
[2020-04-23 06:38] LABS: Potassium 3.6 mmol/L (3.5-5.1)
[2020-04-23] MEDS: INSULIN ASPART (NovoLOG) 100 UNIT/ML VIAL SQ SCH ×4 (06:39→21:07)
[2020-04-23 06:42] LABS: INR 2.4 (<1.2); Prothrombin Time 23.6 sec (9.0-12.0)
[2020-04-23] MEDS: MULTIVITAMINS, THERA 1 EACH TAB PO SCH (09:13)
[2020-04-23] MEDS: ATORVASTATIN 40 MG TAB PO SCH (09:13)
[2020-04-23] MEDS: AMIODARONE 200 MG TAB PO SCH ×2 (09:13→21:06)
[2020-04-23] MEDS: ASPIRIN 81 MG PO SCH (09:14)
[2020-04-23] MEDS: CILOSTAZOL 100 MG TAB PO SCH ×2 (09:14→21:07)
[2020-04-23] MEDS: FUROSEMIDE 20 MG TAB PO SCH ×2 (09:14→21:06)
[2020-04-23] MEDS: LISINOPRIL 20 MG TAB PO SCH (09:14)
--- NOTE | 2020-04-23 10:00 | ECHOF ---
Referral Reason:chf MEASUREMENTS -------- HEIGHT: 175.3 cm WEIGHT: 126.6 kg BP: 134/60 RVIDd: 3.2 cm (< 3.3) IVSd: 1.3 cm (0.6 - 1.1) LVIDd: 5.0 cm (3.9 - 5.3) LVPWd: 1.6 cm (0.6 - 1.1) IVSs: 2.3 cm LVIDs: 3.9 cm LVPWs: 2.9 cm LAESV Index (A-L): 29.18 ml/m Ao Diam: 3.0 cm (2.0 - 3.7) AV Cusp: 2.1 cm (1.5 - 2.6) MV EXCURSION: 25.141 mm (> 18.000) MV EF SLOPE: 97 mm/s (70 - 150) EPSS: 0.4 cm MV E Kit: 0.71 m/s MV DecT: 236 ms MV A Kit: 0.51 m/s MV E/A Ratio: 1.39 FINDINGS -------- Sinus rhythm. This was a technically difficult study with suboptimal views. Morbid Obesity The left ventricular size is normal. There is mild concentric left ventricular hypertrophy. Overa ll left ventricular systolic function is mild-moderately impaired with, an EF between 40 - 45 %. Se ptal wall motion is delayed, and consistent with conduction delay/bundle branch block. Inferior Hyp okinesis The right ventricle is normal in size. LA is midly dilated 29-33ml/m2. The right atrium was not well visualized. Lumason used Interatrial and interventricular septum intact. There is no evidence of aortic regurgitation. There is no evidence of aortic stenosis. Mild mitral regurgitation is present. The tricuspid valve was not well visualized. The pulmonic valve was not well visualized. The aortic root size is normal. IVC Not well visulized. There is no pericardial effusion. CONCLUSIONS -------- 1. Sinus rhythm. 2. This was a technically difficult study with suboptimal views. 3. Morbid Obesity 4. The left ventricular size is normal. 5. There is mild concentric left ventricular hypertrophy. 6. Overall left ventricular systolic function is mild-moderately impaired with, an EF between 40 - 45 %. 7. Septal wall motion is delayed, and consistent with conduction delay/bundle branch block. 8. Inferior Hypokinesis 9. The right ventricle is normal in size. 10. LA is midly dilated 29-33ml/m2. 11. The right atrium was not well visualized. 12. Lumason used 13. Interatrial and interventricular septum intact. 14. There is no evidence of aortic regurgitation. 15. There is no evidence of aortic stenosis. 16. Mild mitral regurgitation is present. 17. The tricuspid valve was not well visualized. 18. The pulmonic valve was not well visualized. 19. The aortic root size is normal. 20. IVC Not well visulized. 21. There is no pericardial effusion. FIRST OFFICER: Tanya Montes RDCS
[2020-04-23 11:41] LABS: Glucose,Whole Blood 163 mg/dL (75-99)
--- NOTE | 2020-04-23 11:43 | PN ---
PROGRESS NOTE Mr. Fatima is a 75-year-old male who presented with symptoms of congestive heart failure. He has underwent cardioversion recently. He is doing much better this morning. His breathing is stable. He denies any dizziness or palpitation. He denies any nausea. He denies any cough or fever. He had an echocardiogram done yesterday. The report is pending. He continues on amiodarone 200 mg twice a day, aspirin once a day, Lipitor 40 mg daily, , Lasix 20 mg IV q.12 hours, Zestril 20 mg daily, and Coumadin. PHYSICAL EXAMINATION: Blood pressure 120/59 with a heart rate in the 60s. LUNGS: Clear. HEART: Regular rate and rhythm, S1, S2. No S3 with systolic murmur, no diastolic murmur. ABDOMEN: Soft, nontender. EXTREMITIES: Trace edema. LAB DATA: Revealed BUN and creatinine of 20 and 1.1, potassium 2.4. IMPRESSION: 1. Episode of congestive heart failure, post cardioversion, resolved. 2. Atrial fibrillation, status post cardioversion, remains in sinus mechanism. 3. Prior history of coronary artery disease. 4. History of peripheral vascular disease. RECOMMENDATION: I reviewed the results of his echocardiogram. I will switch him to oral diuretics, increase his activity. If his echocardiogram shows no acute changes, I would expect he should be able to be discharged home today and follow up as an outpatient with Dr. Acosta. JOSE / JUJU: [id number] /
[2020-04-23 16:55] LABS: Glucose,Whole Blood 249 mg/dL (75-99)
[2020-04-23] MEDS: WARFARIN 5 MG TAB PO SCH (17:54)
[2020-04-23 20:10] LABS: Glucose,Whole Blood 166 mg/dL (75-99)
--- NOTE | 2020-04-24 00:11 | P.PN ---
Subjective Progress Note Date: 04/23/20 Principal diagnosis: Acute CHF Pt. is a 75-year-old male with a known history of hypertension, hyperlipidemia, diabetes type 2, history of AK, coronary artery disease, peripheral vascular disease with fem-fem bypass, atrial fibrillation status post cardioversion on 04/19/2020 came to ER with complaints of shortness of breath. Patient had cardioversion and went home and became short of breath shortly after. Patient has been worsening shortness of breath yesterday which made him to come to ER. Did have nonproductive cough. No fever no chills. No history of prior CHF. D enied any sick contacts. Patient does have history of DVT and is on Coumadin at home. No complaints of chest pain. Patient was saturating at 70% on admission. Patient was placed on observation as an cannula and oxygen saturation went up to 90%. Patient was tachypneic and was started on noninvasive mechanical ventilation with CPAP. Patient was also given breathing treatments in the ER. Denied any complaints of nausea vomiting or abdominal pain or diarrhea. Patient does have chronic lower extremity wound at the ankle and is following with wound care for that. No discharge or drainage noted. EKG showed sinus rhythm with first-degree AV block. Chest x-ray showed pulmonary edema and small pleural effusions consistent with CHF that is a change compared to old exam. There is probably some right lower lobe pneumonia. Abnormal and is essentially new compared to old exam. wbc 0.7 Lactic acid 2.1 BNP 525 Liver enzymes are slightly elevated 04/22/2020 Patient is currently lying in the bed comfortably. Breathing status is better. Still having exertional dyspnea. Currently being continued on IV Lasix which will be continued for another 24 hours. Cardiology is following. Renal fu nction is stable. Continued on oxygen therapy. Patient has been afebrile. No nausea vomiting or abdominal pain or diarrhea. No headache or dizziness or lightheadedness. Leg swelling is improving. 04/23/2020 Patient is currently sitting on exam comfortably. Breathing status is much better now. IV Lasix has been changed to Lasix for 20 mg twice daily. Renal function is stable. Patient is currently oxygen at 2 L via nasal cannula which will be titrated down to room air. Otherwise patient is tolerating oral diet. No headache or dizziness or lightheadedness. Leg swelling is much improved. Patient wishes to be discharged home with family tomorrow. 2D echocardiogram showed overall left ventricular systolic function is mild to moderately impaired with ejection fraction 40 to 45%. Inferior hypokinesis. No significant valvular abnormalities were noted. Current medications reviewed Objective - Vital Signs Vital signs: Vital Signs Temp 97.7 F 04/23/20 16:10 Pulse 70 04/23/20 16:10 Resp 18 04/23/20 16:10 BP 131/60 04/23/20 16:10 Pulse Ox 95 04/23/20 16:43 Intake & Output 04/23/20 04/23/20 04/24/20 06:59 18:59 06:59 Intake Total 1580 720 Output Total 3050 650 450 Balance -1470 70 -450 Weight 123.3 kg Intake: Oral 1580 720 Output: Urine 2250 650 450 Straight 800 Post Void Residual 800 Other: Voiding Method Urinal # Voids 1 1 - Exam PHYSICAL EXAMINATION: Patient is lying in the bed comfortably, no acute distress, awake alert and oriented.. HEENT: Normocephalic. Neck is supple. Pupils reactive. Nostrils clear. Oral cavity is moist. Ears reveal no drainage. Neck reveals no JVD, carotid bruits, or thyromegaly. CHEST EXAMINATION: Trachea is central. Symmetrical expansion. Bibasilar diminished air entry. No wheezing. Lung sands clear to auscultation and percussion. CARDIAC: Normal S1, S2 with no gallops. No murmurs ABDOMEN: Soft. Bowel sounds normal. No organomegaly. No abdominal bruits. Extremities: Bilateral lower extremity 1+ edema. No clubbing or cyanosis Neurologically awake, alert, oriented x3 with well-coordinated movements. No focal deficits noted Skin: No rash or skin lesions. Psychiatric: Coperative. Nonsuicidal Musculoskeletal: No joint swelling or deformity. Normal range of motion. - Labs CBC & Chem 7: 04/22/20 06:04 04/23/20 06:06 Labs: Abnormal Lab Results - Last 24 Hours (Table) 04/23/20 04/23/20 04/23/20 Range/Units 06:06 06:06 06:10 PT 23.6 H (9.0-12.0) sec INR 2.4 H (<1.2) Sodium 136 L (137-145) mmol/L Glucose 146 H (74-99) mg/dL POC Glucose (mg/dL) 136 H (75-99) mg/dL 04/23/20 04/23/20 04/23/20 Range/Units 11:40 16:54 20:08 PT (9.0-12.0) sec INR (<1.2) Sodium (137-145) mmol/L Glucose (74-99) mg/dL POC Glucose (mg/dL) 163 H 249 H 166 H (75-99) mg/dL Microbiology - Last 24 Hours (Table) 04/20/20 17:23 Blood Culture - Preliminary Blood No Growth after 72 hours Assessment and Plan Assessment: Pulmonary edema and small pleural effusion likely due to acute CHF. BNP level is only mildly elevated. Possibly due to myocardial stunning after cardioversion. improveded. now. Acute hypoxic respiratory failure secondary to CHF requiring noninvasive mechanical ventilation in the ER. Elevated liver enzymes likely due to congestion Paroxysmal atrial fibrillation status post cardioversion on 04/19/2020 History of DVT in the arm following cardiac cath History of AK Coronary artery disease Peripheral vascular disease status post fem-fem bypass Previous history of smoking Hypertension and diabetes type 2 management depending Hyperlipidemia Chronic right ankle wound follows with the wound care clinic. History of MRSA DVT prophylaxis patient is already on Coumadin Plan: Patient was continued on IV Lasix and breathing treatments as needed. lasix chnaged to PO Continue with telemetry monitoring. Oxygen therapy as needed. Cardiology was is folllowing. TTE was done. Continue the insulin sliding scale and monitor blood sugar closely. Further recommendations based on the clinical course. Continue the wound care. Time with Patient: Greater than 30
[2020-04-24 05:07] VITALS: PULSE 72
[2020-04-24 06:18] LABS: Glucose,Whole Blood 142 mg/dL (75-99)
[2020-04-24 06:18] LABS: Glucose,Whole Blood 335 mg/dL (75-99)
[2020-04-24] MEDS: INSULIN ASPART (NovoLOG) 100 UNIT/ML VIAL SQ SCH (06:37)
[2020-04-24] MEDS: FUROSEMIDE 20 MG TAB PO SCH (08:57)
[2020-04-24] MEDS: ASPIRIN 81 MG PO SCH (08:57)
[2020-04-24] MEDS: LISINOPRIL 20 MG TAB PO SCH (08:57)
[2020-04-24] MEDS: AMIODARONE 200 MG TAB PO SCH (08:57)
[2020-04-24] MEDS: MULTIVITAMINS, THERA 1 EACH TAB PO SCH (08:57)
[2020-04-24] MEDS: ATORVASTATIN 40 MG TAB PO SCH (08:57)
[2020-04-24] MEDS: CILOSTAZOL 100 MG TAB PO SCH (09:00)
--- NOTE | 2020-04-24 10:11 | PN ---
PROGRESS NOTE Mr. Fatima is a 75-year-old male who presented with symptoms of congestive heart failure. He is feeling better today. He had recently underwent cardioversion with latter-day of normal sinus rhythm. He continued to be in sinus mechanism. He has a history of peripheral disease. He has no dizziness or palpitation. He denies any nausea. His peripheral edema has improved. He continues to be at this time on amiodarone 200 mg twice a day, aspirin once a day, Coumadin, Lipitor 40 mg daily, Pletal 100 mg twice a day, Lasix 20 mg twice a day, lisinopril 20 mg daily. PHYSICAL EXAMINATION: Blood pressure 113/56 with a heart rate in the 70s. LUNGS: Clear. HEART: Regular rate and rhythm, S1, S2. No S3 with systolic murmur, no diastolic murmur. ABDOMEN: Soft, nontender, obese. EXTREMITIES: No edema. IMPRESSION: 1. Symptoms of congestive heart failure, improved. 2. Status post recent cardioversion. 3. Mild cardiomyopathy, unchanged. 4. History of peripheral vascular disease. 5. History of coronary artery disease. RECOMMENDATION: From the cardiac standpoint, he should be able to be discharged home today and follow up as an outpatient with Dr. Acosta. MMODL / RADHAN: [id number] /
[2020-04-24 11:44] LABS: Glucose,Whole Blood 183 mg/dL (75-99)
[2020-04-24 12:01] VITALS: BP 117/58; RESP 14; TEMP 96.9
--- NOTE | 2020-04-25 09:01 | CDI ---
Documentation Clarification Form Date: 04/25/2020 08:49:57 AM From: Neda Vicente Phone: If you have a question about this query, please contact Tiffani Richardson, Senior Patient Account Representative at [phone] between 8am and 5pm. Admit Date: 04/20/2020 06:14:00 PM Patient Name: Terrance Fatima Visit Number: [id number] Discharge Date: 04/24/2020 01:23:00 PM ATTENTION: The Clinical Documentation Specialists (CDI) and [facility] Coding Staff appreciate your assistance in clarifying documentation. Please respond to the clarification below the line at the bottom and electronically sign. The CDI & [facility] Coding staff will review the response and follow-up if needed. Please note: Queries are made part of the Legal Health Record. If you have any questions, please contact the author of this message via ITS. Dr. Janette Benz Patient presents with CHF symptoms. ER documents Systolic CHF. Please clarify acutity of CHF. History/Risk Factors: HTN, Afib recent cardioversion, cardiomyopathy, prior NH CAD Acute hypoxic respiratory failure on CPAP and BIPAP Clinical Indicators: VS/Pulse OX: 99F, 76 bpm, 30 resp., 186/97, 77% CPAP BNP: 525 Echocardiogram Results: ventricular systolic function mild-moderate impaired Chest X Ray: Pulmonary edema and small pleural effusions consistent with CHF Treatment: IV Lasix and breathing treatments In your professional opinion, can you please clarify the acuity and type of CHF if known? Systolic Heart Failure: Acute Chronic Acute on Chronic Diastolic Heart Failure: Acute Chronic Acute on Chronic Systolic & Diastolic Heart Failure: Acute Chronic Acute on Chronic Heart Failure Unable to Determine Other, please specify Acute Systolic Heart Failure MTDD
--- NOTE | 2020-05-14 16:25 | P.DS ---
Providers Date of admission: 04/20/20 18:14 Expected date of discharge: 04/24/20 Attending physician: Piedad Donnelly MD Consults: 04/20/20 18:14 Consult Physician Urgent Consulting Provider: [facility] Consult Reason/Comments: AECHF, recent ablation Do you want consulting provider notified?: Yes Primary care physician: Sheila Valdez Hospital Course: Discharge diagnosis Pulmonary edema and small pleural effusion likely due to acute CHF. BNP level is only mildly elevated. Possibly due to myocardial stunning after cardioversion. improveded. now. Acute hypoxic respiratory failure secondary to CHF requiring noninvasive mechanical ventilation in the ER. Elevated liver enzymes likely due to congestion Paroxysmal atrial fibrillation status post cardioversion on 04/19/2020 History of DVT in the arm following cardiac cath History of [place] Coronary artery disease Peripheral vascular disease status post fem-fem bypass Previous history of smoking Hypertension and diabetes type 2 management depending Hyperlipidemia Chronic right ankle wound follows with the wound care clinic. History of MRSA DVT prophylaxis patient is already on Coumadin Hospital course Pt. is a 75-year-old male with a known history of hypertension, hyperlipidemia, diabetes type 2, history of [place], coronary artery disease, peripheral vascular disease with fem-fem bypass, atrial fibrillation status post cardioversion on 04/19/2020 came to ER with complaints of shortness of breath. Patient had cardioversion and went home and became short of breath shortly after. Patient has been worsening shortness of breath yesterday which made him to come to ER. Did have nonproductive cough. No fever no chills. No history of prior CHF. Denied any sick contacts. Patient does have history of DVT and is on Coumadin at home. No complaints of chest pain. Patient was saturating at 70% on admission. Patient was placed on observation as an cannula and oxygen saturation went up to 90%. Patient was tachypneic and was started on noninvasive mechanical ventilation with CPAP. Patient was also given breathing treatments in the ER. Denied any complaints of nausea vomiting or abdominal pain or diarrhea. Patient does have chronic lower extremity wound at the ankle and is following with wound care for that. No discharge or drainage noted. EKG showed sinus rhythm with first-degree AV block. Chest x-ray showed pulmonary edema and small pleural effusions consistent with CHF that is a change compared to old exam. There is probably some right lower lobe pneumonia. Abnormal and is essentially new compared to old exam. wbc 0.7 Lactic acid 2.1 BNP 525 Liver enzymes are slightly elevated 04/22/2020 Patient is currently lying in the bed comfortably. Breathing status is better. Still having exertional dyspnea. Currently being continued on IV Lasix which will be continued for another 24 hours. Cardiology is following. Renal function is stable. Continued on oxygen therapy. Patient has been afebrile. No nausea vomiting or abdominal pain or diarrhea. No headache or dizziness or lightheadedness. Leg swelling is improving. 04/23/2020 Patient is currently sitting on exam comfortably. Breathing status is much better now. IV Lasix has been changed to Lasix for 20 mg twice daily. Renal function is stable. Patient is currently oxygen at 2 L via nasal cannula which will be titrated down to room air. Otherwise patient is tolerating oral diet. No headache or dizziness or lightheadedness. Leg swelling is much improved. Patient wishes to be discharged home with family tomorrow. 2D echocardiogram showed overall left ventricular systolic function is mild to moderately impaired with ejection fraction 40 to 45%. Inferior hypokinesis. No significant valvular abnormalities were noted. 04/24/2020 Patient is currently sitting in the chair comfortably. Breathing status is much improved and currently patient is on room air. Lasix will be continued at 20 mg twice daily. Renal function stable. 2D echocardiogram was done. Cleared from cardiology standpoint and recommends to follow-up as an outpatient within a week. No other acute overnight issues. No complaints of chest pain. No fever no chills. No nausea vomiting abdominal pain or diarrhea. PHYSICAL EXAMINATION: Patient is lying in the bed comfortably, no acute distress, awake alert and oriented.. HEENT: Normocephalic. Neck is supple. Pupils reactive. Nostrils clear. Oral cavity is moist. Ears reveal no drainage. Neck reveals no JVD, carotid bruits, or thyromegaly. CHEST EXAMINATION: Trachea is central. Symmetrical expansion. Bibasilar diminished air entry. No wheezing. Lung sands clear to auscultation and per cussion. CARDIAC: Normal S1, S2 with no gallops. No murmurs ABDOMEN: Soft. Bowel sounds normal. No organomegaly. No abdominal bruits. Extremities: Bilateral lower extremity trace edema. No clubbing or cyanosis Neurologically awake, alert, oriented x3 with well-coordinated movements. No focal deficits noted Skin: No rash or skin lesions. Psychiatric: Coperative. Nonsuicidal Musculoskeletal: No joint swelling or deformity. Normal range of motion. Discharge vitals reviewed. Patient Condition at Discharge: Stable Plan - Discharge Summary Discharge Rx Participant: No New Discharge Prescriptions: New Aspirin 81 mg PO DAILY #30 chew Furosemide [Lasix] 20 mg PO BID #60 tab Atorvastatin [Lipitor] 40 mg PO DAILY #30 tab Continue Lisinopril [Zestril] 20 mg PO DAILY metFORMIN HCL [Glucophage] 500 mg PO BID Cilostazol [Pletal] 100 mg PO BID Multivitamin [Men's Multi-Vitamin] 1 tab PO DAILY glyBURIDE [Diabeta] 5 mg PO AC-BID Amiodarone [Cordarone] 200 mg PO BID Warfarin [Coumadin] 5 mg PO MOTUTHFRSA Fenofibrate [Lofibra] 160 mg PO DAILY Warfarin [Coumadin] 2.5 mg PO SUWE Discontinued Ibuprofen [Motrin Ib] 200 mg PO Q6H PRN PRN Reason: Pain Discharge Medication List Lisinopril [Zestril] 20 mg PO DAILY 04/09/14 [History] metFORMIN HCL [Glucophage] 500 mg PO BID 07/12/14 [History] Cilostazol [Pletal] 100 mg PO BID 06/07/17 [History] Multivitamin [Men's Multi-Vitamin] 1 tab PO DAILY 05/05/18 [History] glyBURIDE [Diabeta] 5 mg PO AC-BID 06/17/18 [History] Amiodarone [Cordarone] 200 mg PO BID 04/18/20 [History] Warfarin [Coumadin] 5 mg PO MOTUTHFRSA 04/18/20 [History] Fenofibrate [Lofibra] 160 mg PO DAILY 04/20/20 [History] Warfarin [Coumadin] 2.5 mg PO SUWE 04/20/20 [History] Aspirin 81 mg PO DAILY #30 chew 04/24/20 [Rx] Atorvastatin [Lipitor] 40 mg PO DAILY #30 tab 04/24/20 [Rx] Furosemide [Lasix] 20 mg PO BID #60 tab 04/24/20 [Rx] Follow up Appointment(s)/Referral(s): Sheila Valdez DO [Primary Care Provider] - 04/29/20 9:20 am Betito Acosta MD [STAFF PHYSICIAN] - 04/30/20 12:45 pm Patient Instructions/Handouts: Heart Failure (DC), Chronic Wounds (DC) Discharge Disposition: HOME SELF-CARE
== END 2020-04-24 13:23 | disposition home or self-care (01) | DRG 291 ==
LOC: EC 15:45 → 3SCARD 18:14
PROVIDERS: ADMIT Internal Medicine; ATTEND Internal Medicine
PROC: 5A09357 Assistance with Respiratory Ventilation, Less than 24 Consecutive Hours, Continuous Positive Airway Pressure (ICD-10-PCS; principal; 2020-04-20)
DX: I11.0 Hypertensive heart disease with heart failure (principal); J18.9 Pneumonia, unspecified organism; J96.01 Acute respiratory failure with hypoxia; I50.21 Acute systolic (congestive) heart failure; I48.20 Chronic atrial fibrillation, unspecified; Z68.41 Body mass index [BMI] 40.0-44.9, adult; I34.0 Nonrheumatic mitral (valve) insufficiency; I42.9 Cardiomyopathy, unspecified; I44.0 Atrioventricular block, first degree; I48.0 Paroxysmal atrial fibrillation; I87.2 Venous insufficiency (chronic) (peripheral); Y95 Nosocomial condition; S89.90XA Unspecified injury of unspecified lower leg, initial encounter; Z20.828 Contact with and (suspected) exposure to other viral communicable diseases; W01.0XXA Fall on same level from slipping, tripping and stumbling without subsequent striking against object, initial encounter; Z79.01 Long term (current) use of anticoagulants; Z79.02 Long term (current) use of antithrombotics/antiplatelets; Z79.84 Long term (current) use of oral hypoglycemic drugs; Z79.899 Other long term (current) drug therapy; Z82.49 Family history of ischemic heart disease and other diseases of the circulatory system; Z86.718 Personal history of other venous thrombosis and embolism; Z87.891 Personal history of nicotine dependence; Z86.14 Personal history of Methicillin resistant Staphylococcus aureus infection; Z86.19 Personal history of other infectious and parasitic diseases; E66.9 Obesity, unspecified; E11.51 Type 2 diabetes mellitus with diabetic peripheral angiopathy without gangrene; E78.5 Hyperlipidemia, unspecified; I25.10 Atherosclerotic heart disease of native coronary artery without angina pectoris; I25.2 Old myocardial infarction; Z79.82 Long term (current) use of aspirin
CPT/HCPCS: 36415; 71045; 80048; 80053; 80061; 82803; 83036; 83605; 83735; 83880; 84484; 85025; 85610; 85730; 87040; 92960; 93005; 93306; 93312; 93320; 93325; 94660; 96365; 96366; 96375; 99285

== ENCOUNTER 2022-07-29 17:29 | Emergency (ER) | payer MEDICARE ==
[2022-07-29 17:57] VITALS: TEMP 97.5
--- NOTE | 2022-07-29 18:41 | ED ---
General Adult HPI - General Chief complaint: Shortness of Breath Stated complaint: fall, chest injury Time Seen by Provider: 07/29/22 18:26 Source: patient, RN notes reviewed, old records reviewed Mode of arrival: wheelchair Limitations: no limitations - History of Present Illness Initial comments: 77-year-old male presenting with cough, generalized weakness, difficulty ambulating. Symptoms began over the past 24 hours. He's had cough and congestion. No chest pain. No abdominal pain. He did have a fall with no significant injury, no head or neck trauma. - Related Data Home Medications Medication Instructions Recorded Confirmed lisinopriL [Zestril] 20 mg PO DAILY 04/09/14 04/20/20 metFORMIN HCL [Glucophage] 500 mg PO BID 07/12/14 04/20/20 cilostazoL [Pletal] 100 mg PO BID 06/07/17 04/20/20 Multivitamin [Men's Multi-Vitamin] 1 tab PO DAILY 05/05/18 04/20/20 glyBURIDE [Diabeta] 5 mg PO AC-BID 06/17/18 04/20/20 Amiodarone [Cordarone] 200 mg PO BID 04/18/20 04/20/20 Warfarin [Coumadin] 5 mg PO MOTUTHFRSA 04/18/20 04/20/20 Fenofibrate [Lofibra] 160 mg PO DAILY 04/20/20 04/20/20 Warfarin [Coumadin] 2.5 mg PO SUWE 04/20/20 04/20/20 Previous Rx's Medication Instructions Recorded Aspirin 81 mg PO DAILY #30 chew 04/24/20 Atorvastatin [Lipitor] 40 mg PO DAILY #30 tab 04/24/20 Furosemide [Lasix] 20 mg PO BID #60 tab 04/24/20 Allergies Allergy/AdvReac Type Severity Reaction Status Date / Time atorvastatin Allergy Unknown Verified 07/29/22 17:57 Review of Systems ROS Statement: Those systems with pertinent positive or pertinent negative responses have been documented in the HPI. ROS Other: All systems not noted in ROS Statement are negative. Past Medical History Past Medical History: Atrial Fibrillation, Coronary Artery Disease (CAD), Diabetes Mellitus, Deep Vein Thrombosis (DVT), Hyperlipidemia, Hypertension, Myocardial Infarction ([place]), Skin Disorder, Vascular Disorder Additional Past Medical History / Comment(s): Shingles 2004. hx. elevated liver enzymes related to taking statins, right inner ankle small wound, usually wraps it, EDEMA LEGS, VARICOSE VEINS. DVT IN ARM FOLLOWING CARDIAC CATH, Last Myocardial Infarction Date:: 2005 History of Any Multi-Drug Resistant Organisms: MRSA Date of last positivie culture/infection: 06/11/16 MDRO Source:: RIGHT LEG Past Surgical History: Cholecystectomy, Heart Catheterization, Orthopedic Surg brooks, Tonsillectomy Additional Past Surgical History / Comment(s): Wrist surg., RLL SURGERIES D/T MARC. FEM/FEM BYPASS, Cardioversion 04/19 Past Anesthesia/Blood Transfusion Reactions: No Reported Reaction Past Psychological History: No Psychological Hx Reported Smoking Status: Former smoker Past Alcohol Use History: None Reported Past Drug Use History: None Reported - Past Family History Brother(s) Family Medical History: Cancer Sister(s) Family Medical History: Cancer Father Family Medical History: Myocardial Infarction ([place]) Mother Family Medical History: Cancer, Dementia General Exam Limitations: no limitations General appearance: alert, in no apparent distress Head exam: Present: atraumatic, normocephalic Eye exam: Present: normal appearance, PERRL ENT exam: Present: normal exam Neck exam: Present: normal inspection. Absent: tenderness, meningismus Respiratory exam: Present: normal lung sounds bilaterally. Absent: respiratory distress, wheezes Cardiovascular Exam: Present: regular rate, normal rhythm GI/Abdominal exam: Present: soft. Absent: distended, tenderness Extremities exam: Present: normal inspection, normal capillary refill. Absent: pedal edema Neurological exam: Present: alert, oriented X3, CN II-XII intact. Absent: motor sensory deficit Psychiatric exam: Present: normal affect, normal mood Skin exam: Present: warm, dry, intact. Absent: cyanosis, diaphoretic Course Vital Signs 07/29/22 07/29/22 17:54 17:57 Temperature 97.5 F L Pulse Rate 76 Respiratory 18 18 Rate Blood Pressure 123/56 O2 Sat by Pulse 94 L Oximetry EKG Findings - EKG Comments: EKG Findings:: EKG: Sinus rhythm rate of 82, HI interval 205, QRS duration 110, QTC 405, no ST segment elevation. First-degree AV block Medical Decision Making - Medical Decision Making 77-year-old with cough, congestion, weakness. Patient is well-appearing with stable vitals. He does have a clear chest x-ray. Lab testing unremarkable with exception of testing positive for coronavirus. Patient is vaccinated and has a booster. He is not hypoxic or in any respiratory distress. He would potentially be a candidate for oral antivirals however he is on multiple medications with significant interactions including amiodarone. I feel the risks outweigh the benefits in this patient at this current time. He is given strict return parameters and will take vitamin C, vitamin D and zinc. Return with any increased respiratory issues or any new issues at all. - Lab Data Result diagrams: 07/29/22 18:36 07/29/22 18:36 Lab Results 07/29/22 07/29/22 07/29/22 Range/Units 18:36 18:36 18:36 WBC 5.7 (3.8-10.6) k/uL RBC 4.95 (4.30-5.90) m/uL Hgb 13.5 (13.0-17.5) gm/dL Hct 41.2 (39.0-53.0) % MCV 83.2 (80.0-100.0) fL MCH 27.2 (25.0-35.0) pg MCHC 32.6 (31.0-37.0) g/dL RDW 14.4 (11.5-15.5) % Plt Count 203 (150-450) k/uL MPV 8.2 Neutrophils % 73 % Lymphocytes % 11 % Monocytes % 11 % Eosinophils % 1 % Basophils % 0 % Neutrophils # 4.2 (1.3-7.7) k/uL Lymphocytes # 0.6 L (1.0-4.8) k/uL Monocytes # 0.6 (0-1.0) k/uL Eosinophils # 0.1 (0-0.7) k/uL Basophils # 0.0 (0-0.2) k/uL PT 23.3 H (9.0-12.0) sec INR 2.3 H (<1.2) APTT 41.3 H (22.0-30.0) sec Sodium 135 L (137-145) mmol/L Potassium 4.2 (3.5-5.1) mmol/L Chloride 99 (98-107) mmol/L Carbon Dioxide 25 (22-30) mmol/L Anion Gap 11 mmol/L BUN 15 (9-20) mg/dL Creatinine 1.06 (0.66-1.25) mg/dL Est GFR (CKD-EPI)AfAm 80 (>60 ml/min/1.73 sqM) Est GFR (CKD-EPI)NonAf 69 (>60 ml/min/1.73 sqM) Glucose 66 L (74-99) mg/dL Plasma Lactic Acid Zhang (0.7-2.0) mmol/L Calcium 9.0 (8.4-10.2) mg/dL Total Bilirubin 0.9 (0.2-1.3) mg/dL AST 42 (17-59) U/L ALT 28 (4-49) U/L Alkaline Phosphatase 115 (38-126) U/L Total Protein 7.1 (6.3-8.2) g/dL Albumin 4.1 (3.5-5.0) g/dL Coronavirus (PCR) (Not Detectd) 07/29/22 07/29/22 Range/Units 18:36 18:40 WBC (3.8-10.6) k/uL RBC (4.30-5.90) m/uL Hgb (13.0-17.5) gm/dL Hct (39.0-53.0) % MCV (80.0-100.0) fL MCH (25.0-35.0) pg MCHC (31.0-37.0) g/dL RDW (11.5-15.5) % Plt Count (150-450) k/uL MPV Neutrophils % % Lymphocytes % % Monocytes % % Eosinophils % % Basophils % % Neutrophils # (1.3-7.7) k/uL Lymphocytes # (1.0-4.8) k/uL Monocytes # (0-1.0) k/uL Eosinophils # (0-0.7) k/uL Basophils # (0-0.2) k/uL PT (9.0-12.0) sec INR (<1.2) APTT (22.0-30.0) sec Sodium (137-145) mmol/L Potassium (3.5-5.1) mmol/L Chloride (98-107) mmol/L Carbon Dioxide (22-30) mmol/L Anion Gap mmol/L BUN (9-20) mg/dL Creatinine (0.66-1.25) mg/dL Est GFR (CKD-EPI)AfAm (>60 ml/min/1.73 sqM) Est GFR (CKD-EPI)NonAf (>60 ml/min/1.73 sqM) Glucose (74-99) mg/dL Plasma Lactic Acid Zhang 1.1 (0.7-2.0) mmol/L Calcium (8.4-10.2) mg/dL Total Bilirubin (0.2-1.3) mg/dL AST (17-59) U/L ALT (4-49) U/L Alkaline Phosphatase (38-126) U/L Total Protein (6.3-8.2) g/dL Albumin (3.5-5.0) g/dL Coronavirus (PCR) Detected A (Not Detectd) Disposition Clinical Impression: COVID-19 Disposition: HOME SELF-CARE Condition: Fair Instructions (If sedation given, give patient instructions): COVID-19 (Cor onavirus Disease 2019) (ED) Additional Instructions: Please take vitamin C, vitamin D, and zinc. Please monitor her breathing and return with worsening or changing symptoms. Is patient prescribed a controlled substance at d/c from ED?: No Referrals: Sheila Valdez DO [Primary Care Provider] - 1-2 days Time of Disposition: 20:11
[2022-07-29 18:57] LABS: Basophils % (A) 0 %; Eosinophils # (A) 0.1 k/uL (0-0.7); Eosinophils % (A) 1 %; HCT 41.2 % (39.0-53.0); HGB 13.5 gm/dL (13.0-17.5); Lymphocytes # (A) 0.6 k/uL (1.0-4.8); Lymphocytes % (A) 11 %; MCH 27.2 pg (25.0-35.0); MCHC 32.6 g/dL (31.0-37.0); MCV 83.2 fL (80.0-100.0); Mean Platelet Volume 8.2; Monocytes # (A) 0.6 k/uL (0-1.0); Monocytes % (A) 11 %; Neutrophils # (A) 4.2 k/uL (1.3-7.7); Neutrophils % (A) 73 %; Platelet Count 203 k/uL (150-450); RBC 4.95 m/uL (4.30-5.90); RDW 14.4 % (11.5-15.5); WBC 5.7 k/uL (3.8-10.6)
[2022-07-29 18:58] LABS: Albumin 4.1 g/dL (3.5-5.0); Potassium 4.2 mmol/L (3.5-5.1); Total Bilirubin 0.9 mg/dL (0.2-1.3); Total Protein 7.1 g/dL (6.3-8.2)
[2022-07-29 19:08] LABS: INR 2.3 (<1.2); Partial Thromboplastin Time 41.3 sec (22.0-30.0); Prothrombin Time 23.3 sec (9.0-12.0)
--- NOTE | 2022-07-29 19:35 | XR ---
EXAMINATION TYPE: XR chest 2V DATE OF EXAM: 07/29/2022 6:55 PM COMPARISON: Chest radiographs from 04/20/2020 TECHNIQUE: XR chest 2V Frontal and lateral views of the chest. CLINICAL INDICATION:Male, 77 years old with history of difficulty breathing; FINDINGS: Lungs/Pleura: There is no evidence of pleural effusion, focal consolidation, or pneumothorax. Pulmonary vascularity: Unremarkable. Heart/mediastinum: Cardiomediastinal silhouette is unremarkable. Atherosclerotic calcifications are seen in the aorta. Musculoskeletal: No acute osseous pathology. IMPRESSION: 1. No acute cardiopulmonary disease/process. 2. Cardiomegaly.
[2022-07-29 20:38] VITALS: BP 129/77; PULSE 77; RESP 66
== END 2022-07-29 20:38 | disposition home or self-care (01) ==
LOC: EC 17:29
DX: U07.1 COVID-19 (principal); I48.91 Unspecified atrial fibrillation; I25.10 Atherosclerotic heart disease of native coronary artery without angina pectoris; E11.9 Type 2 diabetes mellitus without complications; I82.409 Acute embolism and thrombosis of unspecified deep veins of unspecified lower extremity; E78.5 Hyperlipidemia, unspecified; I10 Essential (primary) hypertension; I21.9 Acute myocardial infarction, unspecified; Z88.8 Allergy status to other drugs, medicaments and biological substances; Z79.82 Long term (current) use of aspirin; Z79.84 Long term (current) use of oral hypoglycemic drugs; Z79.899 Other long term (current) drug therapy; Z87.891 Personal history of nicotine dependence
CPT/HCPCS: 36415; 71046; 80053; 83605; 85025; 85610; 85730; 87635; 93005; 99285